=== PATIENT | male | born 1955 | race Caucasian/White ===

== ENCOUNTER → 2021-11-06 | Day surgery (SDC) | payer OTHER ==
[~2021-11-06] VITALS: Ht 182.9 cm; Wt 111.1 kg
[~2021-11-06] MED LIST: AMLODIPINE BES2.5 MG PO; ASPIRIN EC81 MG PO; BYSTOLIC10 MG PO; ENDOCET 5-3251 EACH PO; LIPITOR40 MG PO; LISINOPRIL PO; TOPROL XL 50 MG50 MG PO; ZETIA10 MG PO
== END | disposition home or self-care (01) ==
LOC: FAS 09:33
DX: Z12.11 Encounter for screening for malignant neoplasm of colon (principal); K57.30 Diverticulosis of large intestine without perforation or abscess without bleeding; I25.10 Atherosclerotic heart disease of native coronary artery without angina pectoris; I10 Essential (primary) hypertension; E66.9 Obesity, unspecified; E78.00 Pure hypercholesterolemia, unspecified; Z87.891 Personal history of nicotine dependence; Z91.048 Other nonmedicinal substance allergy status; Z79.82 Long term (current) use of aspirin
CPT/HCPCS: J2704; J7120